=== PATIENT | female | born 1980 | race Asian ===

== ENCOUNTER 2017-03-03 09:37 | Emergency (ER) | payer OTHER ==
[2017-03-03 09:45] VITALS: BP 110/58
--- NOTE | 2017-03-03 11:14 | UC ---
Abdominal Pain Female HPI - HPI Summary HPI Summary: THIS MORNING HAD SEVERE RLQ PAIN, RESOLVED AFTER TAKING OTC MEDICATION FOR MENSTRUAL CRAMPS. NO FEVER. NO N/V. EXPECTING PERIOD TOMORROW. NO BACK PAIN. PATIENT AND ARE ATTEMPTING TO GET . - History of Current Complaint Chief Complaint: UCAbdominalPain Stated Complaint: ABDOMINAL PAIN Time Seen by Provider: 03/03/17 10:04 Hx Obtained From: Patient, Family/Taxicab Dispatcher Hx Last Menstrual Period: 02/03/17 Onset/Duration: Sudden Onset, Lasting Minutes, Resolved Severity Initially: Severe Severity Currently: None Pain Intensity: 2 Pain Scale Used: 0-10 Numeric Location: Discrete At: RLQ Character: Cramping, Sharp Aggravating Factor(s): Nothing Alleviating Factor(s): OTC Analgesics, Spontaneous Resolution Associated Signs and Symptoms: Negative: Diaphoresis, Fever, Cough, Chest Pain, Constipation, Blood in Stool, Urinary Symptoms, Decreased Appetite, Vaginal Bleeding, Vaginal Discharge, Nausea, Vomiting, Diarrhea Allergies/Adverse Reactions: Allergies Allergy/AdvReac Type Severity Reaction Status Date / Time No Known Allergies Allergy Verified 03/03/17 09:40 PMH/Surg Hx/FS Hx/Imm Hx Previously Healthy: Yes - Surgical History Surgical History: None - Family History Known Family History: Negative: Renal Disease - Social History Occupation: Employed Full-time Lives: With Family Alcohol Use: None Substance Use Type: None Smoking Status (MU): Never Smoked Tobacco Review of Systems Constitutional: Negative Skin: Negative Eyes: Negative ENT: Negative Respiratory: Negative Cardiovascular: Negative Gastrointestinal: Abdominal Pain Genitourinary: Frequency Motor: Negative Neurovascular: Negative Musculoskeletal: Negative Neurological: Negative Psychological: Negative All Other Systems Reviewed And Are Negative: Yes Physical Exam Triage Information Reviewed: Yes Appearance: Well-Appearing, No Pain Distress, Well-Nourished, Thin Vital Signs: Initial Vital Signs Temp 97.6 F 03/03/17 09:41 Pulse 65 03/03/17 09:41 Resp 16 03/03/17 09:41 BP 110/58 03/03/17 09:41 Pulse Ox 100 03/03/17 09:41 Vital Signs Reviewed: Yes Eye Exam: Normal ENT Exam: Normal ENT: Positive: Normal ENT inspection, Hearing grossly normal, TMs normal Dental Exam: Normal Neck exam: Normal Neck: Positive: Supple, Nontender, No Lymphadenopathy Respiratory Exam: Normal Respiratory: Positive: Chest non-tender, Lungs clear, Normal breath sounds, No respiratory distress, No accessory muscle use Cardiovascular Exam: Normal Cardiovascular: Positive: RRR, No Murmur, Pulses Normal Abdominal Exam: Normal Abdomen Description: Positive: Nontender, No Organomegaly, Soft. Negative: CVA Tenderness (R), CVA Tenderness (L) Musculoskeletal Exam: Normal Neurological Exam: Normal Psychological Exam: Normal Skin Exam: Normal Abd Pain Female Course/Dx - Course Course Of Treatment: PATEINT CURRENTLY ASYMPTOMATIC. UA SHOWED LEUKOCYTES, TREATED FOR UTI. PATIENT & AGREED TO SEEK CARE AT EMERGENCY DEPARTMENT IF SYMPTOMS RETURN OR IF NEW SYMPTOMS DEVELOP. - Differential Dx/Diagnosis Differential Diagnosis: Appendicitis, Constipation, Diverticulitis, Pneumonia, , Renal Colic, Urinary Tract Infection Provider Diagnoses: URINARY TRACT INFECTION Discharge - Discharge Plan Condition: Stable Disposition: HOME Prescriptions: Nitrofurantoin Macrocrystals* [Macrodantin*] 100 mg PO BID #10 cap Phenazopyridine TAB* [Pyridium 100 mg TAB*] 100 mg PO TID PRN #12 tab PRN Reason: Pain Patient Education Materials: Urinary Tract Infection in Women (ED), Acute Abdominal Pain (ED) Referrals: [facility] PHYSICIAN REFERRAL [Outside] No Primary Care Phys,NOPCP [Primary Care Provider] - Additional Instructions: PRIMARY CARE: There are four major types of clinical preventive care: immunizations, screening , behavioral counseling (sometimes referred to as lifestyle changes), and chemoprevention. All four apply throughout the life span. It is important to establish and to have access to a Primary Care Physician, not only for follow- up regrding acute and chronic problems, but also for preventative care. CURRENTLY YOU ARE ASYMPTOMATIC FOR ABDOMINAL PAIN. IF PAIN RETURNS, BECOMES SEVERE, OR IF NEW SYMPTOMS DEVELOP, PLEASE SEEK EVALUATION AT EMERGENCY DEPARTMENT.
--- NOTE | 2017-03-05 07:32 | UC ---
Progress - Progress Note Progress Note: notify pt no UTI stop antibiotic recheck if still symptomatic
== END 2017-03-03 10:51 | disposition home or self-care (01) ==
LOC: UCEAST 09:37
DX: N39.0 Urinary tract infection, site not specified (principal); Z32.02 Encounter for pregnancy test, result negative
CPT/HCPCS: 81003; 84702; 87086; 99212; G0463

== ENCOUNTER 2017-06-13 23:35 | Observation (INO) | payer OTHER ==
[2017-06-14] MEDS ORDERED: NS 0.9% 1000 ML* 1,000 ML IV ONE (02:28)
[2017-06-14] MEDS ORDERED: Ketorolac INJ* 30 MG/ML 1 ML VIAL IV PUSH ONE (02:28)
[2017-06-14] MEDS ORDERED: Metoclopramide IV* 5 MG/ML 2 ML VIAL IV SLOW PU ONE (02:29)
[2017-06-14 02:39] LABS: Hematocrit 37 % (35-47); Hemoglobin 12.3 g/dl (12.0-16.0); Mean Corpuscular HGB Conc 33 g/dl (31-36); Mean Corpuscular Hemoglobin 32 pg (27-31); Mean Corpuscular Volume 95 fL (80-97); Mean Platelet Volume 7 um3 (7.4-10.4); Red Blood Count 3.88 10^6/ul (4.0-5.4); Red Cell Distribution Width 13 % (10.5-15)
[2017-06-14 02:55] LABS: ALT 11 U/L (7-52); AST 14 U/L (13-39); Albumin 4.1 g/dL (3.2-5.2); Alkaline Phosphatase 38 U/L (34-104); Anion Gap 8 mmol/L (2-11); BUN/Creatinine Ratio 19.4 (8-20); Blood Urea Nitrogen 12 mg/dL (6-24); CO2 Carbon Dioxide 26 mmol/L (22-32); Calcium 9.5 mg/dL (8.6-10.3); Chloride 102 mmol/L (101-111); EGFR African American 141.7 (>60); EGFR Non-African American 110.2 (>60); Globulin 2.7 g/dL (2-4); Glucose 109 mg/dL (70-100); Lipase 18 U/L (11.0-82.0); Potassium 3.6 mmol/L (3.5-5.0); Sodium 136 mmol/L (133-145); Total Protein 6.8 g/dL (6.4-8.9)
[2017-06-14 03:12] LABS: Urine Bacteria 1+ (Absent); Urine Bilirubin Negative (Negative); Urine Glucose Negative (Negative); Urine Nitrite Negative (Negative); Urine Sperm Present (Absent)
[2017-06-14] MEDS ORDERED: Iohexol 300* (CONTRAST) 10 ML SDV IV ONE (03:19)
--- NOTE | 2017-06-14 08:06 | RAD ---
CLINICAL HISTORY: Abdominal pain COMPARISON: None TECHNIQUE: Multiple contiguous axial CT scans were obtained of the abdomen and pelvis after the administration of intravenous contrast. Coronal and sagittal multiplanar reformations are submitted for review. Oral contrast was administered. Delayed images were obtained through the abdomen and pelvis. FINDINGS: LUNG BASES: The lung bases are clear. LIVER: The liver is normal in shape, size, contour, and attenuation. BILE DUCTS: There is no intrahepatic or extrahepatic biliary dilatation. GALLBLADDER: The gallbladder is normal, without pericholecystic inflammatory change. PANCREAS: The pancreas is normal, without mass or ductal dilatation. SPLEEN: Normal in size and appearance. UPPER GI TRACT: Evaluation of the gastrointestinal tract is limited by incomplete gastric distention. The upper GI tract is unremarkable. SMALL BOWEL AND MESENTERY: There is mucosal thickening of the proximal small bowel COLON: The colon is normal in contour, course, caliber. There is no pericolonic inflammatory change. There is a tubular, vermiform, hollow viscus that is blind ending, and originates from the cecum, consistent with a normal appendix. There is no periappendiceal inflammatory change. ADRENALS: Normal bilaterally. KIDNEYS: The kidneys are normal in shape, size, contour, and axis. There is no hydronephrosis or nephrolithiasis. BLADDER: The bladder is smooth in contour. PELVIC ORGANS: There is a peripherally enhancing loculated fluid collection within the pelvic cul-de-sac measuring approximately 6.1 x 5.8 x 6.4 cm in size. There is a 1.3 cm right ovarian cyst. AORTA: The aorta is normal. IVC: Unremarkable LYMPH NODES: There is no lymphadenopathy by size criteria. ABDOMINAL WALL: There is no evidence for abdominal wall hernia. BONES AND SOFT TISSUES: Unremarkable OTHER: None IMPRESSION: 1. THERE IS A LOCULATED FLUID COLLECTION WITHIN THE PELVIC CUL-DE-SAC MEASURING APPROXIMATE 6.1 CM IN SIZE. THE APPEARANCE IS CONCERNING FOR ABSCESS IN THE CORRECT CLINICAL SETTING, THOUGH COMPLEX OVARIAN CYST IS ALSO WITHIN THE DIFFERENTIAL. 2. THERE IS MILD MUCOSAL THICKENING OF THE PROXIMAL SMALL BOWEL MAY BE AN ARTIFACT OF PERISTALSIS OR MAY REFLECT INFLAMMATORY CHANGE IN THE SETTING OF ENTERITIS. THERE IS NO OBSTRUCTION.
--- NOTE | 2017-06-14 09:14 | RAD ---
HISTORY: Ovarian cyst COMPARISONS: CT dated June 14, 2017 TECHNIQUE: Multiple transverse and longitudinal ultrasound images were obtained of the pelvis using grayscale, color Doppler, and spectral Doppler imaging using the endovaginal transducer. FINDINGS: UTERUS: The uterus measures 9.5 x 5.1 x 5.2 cm. The uterus is normal in shape, size, contour, and echotexture. ENDOMETRIUM: The endometrium is thickened.. The endometrium measures 1.7 cm in thickness. CUL-DE-SAC: There is loculated fluid collection within the cul-de-sac corresponding to the finding noted on CT. This appears to be related to the left ovary consistent with a large complex left ovarian cyst measuring 4.9 x 2.4 x 5.8 cm in size. There is no hypervascularity. RIGHT OVARY: The right ovary measures 3.1 x 2.3 x 2.8 cm. There is a follicular cyst measuring up to 2.2 cm. Normal arterial and venous waveforms are identifiable within the ovary on spectral Doppler imaging. LEFT OVARY: The left ovary measures 5.3 x 3.3 x 6.3 cm. As noted above, there is a complex left ovarian cyst within the cul-de-sac measuring up to 5.8 cm. Normal arterial and venous waveforms are identifiable within the ovary on spectral Doppler imaging. BLADDER: The bladder is not well visualized. OTHER: None IMPRESSION: 1. THE COMPLEX FLUID COLLECTION WITHIN THE CUL-DE-SAC NOTED ON CT APPEARS TO BE RELATED TO THE LEFT OVARY CONSISTENT WITH A LARGE, COMPLEX LEFT OVARIAN CYST MEASURING UP TO 5.8 CM. THERE IS NO HYPERVASCULARITY. 2. THICKENED ENDOMETRIUM, MEASURING UP TO 1.7 CM. 3. NO SONOGRAPHIC FEATURES OF TORSION. PLEASE NOTE THAT PARTIAL OR INTERMITTENT TORSION MAY BE SONOGRAPHICALLY NORMAL.
[2017-06-14] MEDS ORDERED: Ondansetron INJ* 2 MG/ML VIAL IV ONE (10:16)
[2017-06-14] MEDS ORDERED: Morphine INJ* 4 MG/ML 1 ML CARPUJECT IV ONE (10:16)
[2017-06-14] MEDS: NS 0.9% 1000 ML* 2,000 ML IV ONE ×2 (10:32→10:33)
[2017-06-14 11:47] LABS: Hematocrit 33 % (35-47); Hemoglobin 10.8 g/dl (12.0-16.0); Mean Corpuscular HGB Conc 33 g/dl (31-36); Mean Corpuscular Hemoglobin 32 pg (27-31); Mean Corpuscular Volume 96 fL (80-97); Mean Platelet Volume 7 um3 (7.4-10.4); Red Cell Distribution Width 13 % (10.5-15); White Blood Count 18.5 10^3/ul (3.5-10.8)
[2017-06-14] MEDS ORDERED: oxyCODONE/Acetamin 5/325 MG* TAB PO PRN (13:25)
[2017-06-14] MEDS: Ketorolac INJ* 30 MG/ML 1 ML VIAL IV SCH ×2 (13:49→22:25)
[2017-06-14] MEDS ORDERED: Piperacillin/Tazobac ADVAN(*) 3.375 GM in NS 0.9% 100 ML* 100 ML IVPB ONE (14:24)
[2017-06-14] MEDS ORDERED: Zosyn per Pharmacy* NOTE FOLLOW UP SCH (15:00)
--- NOTE | 2017-06-14 17:23 | HP ---
ADMISSION FOR OBSERVATION HISTORY AND PHYSICAL: DATE OF ADMISSION: 06/14/17 HISTORY OF PRESENT ILLNESS: Mrs. Onofre is a 36-year-old 0, para 0 with her last menstrual period two weeks ago. She presented to the emergency room on 06/13/17 just before midnight after an acute onset of lower abdominal pain right after having intercourse. She described the pain as a stabbing, poking lower abdominal sensation, greater on the right side than on the left, which became persistent and aggravating. The pain is localized to the lower abdomen. It was accompanied by sudden chills only once and nausea. In the emergency room, after having a pelvic ultrasound and CT scan of the abdomen and blood work, she was diagnosed with a left complex ovarian cyst, a complex fluid collection in the lower pelvis cul-de-sac. She was also noted to have an elevated white blood cell count. She was also tachycardic and had a low blood pressure. She was treated with pain medications and this a.m., I was consulted by the emergency room physician for pain management. PAST MEDICAL HISTORY: Endometriosis, hypercholesterolemia. PAST SURGICAL HISTORY: On 05/06/17, she underwent a laparoscopic left ovarian cystectomy for an endometrioma. MEDICATIONS: None. ALLERGIES: No known drug allergies. SOCIAL HISTORY: She has a master's degree in education. She is . She denies any cigarette, alcohol or drug use. She is currently employed. GYNECOLOGIC HISTORY: As noted in the history of present illness. She denies any history of sexually transmitted diseases. REVIEW OF SYSTEMS: The patient denied any urinary signs or symptoms. Other than nausea, she denied vomiting, diarrhea, constipation, or difficulty with bowel movements. She also denied abnormal vaginal bleeding or vaginal discharge. PHYSICAL EXAMINATION VITAL SIGNS: The patient is 63 inches tall. She weighs 124 pounds. Blood pressure at the time of my examination was 90/52 with a pulse of 107, respiratory rate of 16 with a pulse ox of 97% on room air. LUNGS: Clear to auscultation bilaterally. HEART: Showed irregular rhythm, but tachycardic. She had no CVA tenderness bilaterally. ABDOMEN: Soft, nondistended with hypoactive bowel sounds. No rebound. She did ; however, have positive lower abdominal tenderness on the right side greater than on the left. PELVIC: Exam was deferred. LABORATORY DATA: Her laboratories today, she had a complete blood cell count with a white blood cell count of 18.5. This is elevated from her initial white blood cell count. She also had hemoglobin and hematocrit of 10.8/33, which is a drop in her hemoglobin and hematocrit, which was normal at the time of admission. Platelet count of 258,000, which is within normal limits. She also had an elevated C- reactive protein at 53.14, which was normal on admission. IMAGING: Pelvic ultrasound revealed a complex fluid collection within the cul- de- sac along with a complex 5.8 cm left ovarian cyst. No signs of torsion on the ultrasound. She also had a normal uterus and a normal endometrial thickness given her being mid cycle. CT scan of the abdomen prior to the ultrasound also revealed a left ovarian cyst and cul-de-sac fluid. Please refer to the CT scan. IMPRESSION AND PLAN: This is a 36-year-old patient with abdominal pain of acute onset post sexual intercourse with mid cycle menses. She has a left complex ovarian cyst and cul-de-sac fluid with an elevated white blood cell count, elevated C-reactive protein and a drop in hemoglobin and hematocrit. She has been afebrile since admission. Given the patient's signs and symptoms, my differential is consistent with the followin. Ruptured hemorrhagic physiologic cyst. 2. The patient is afebrile; however, she does have a localized cul-de-sac collection on ultrasound and CT scan with an elevated white blood cell count and C-reactive protein. I cannot rule out the possibility that this could be an infectious process, possibly from her surgery on 05/06/17; however, this seems unlikely. I will admit the patient for observation for pain control. I am also starting Zosyn antibiotics IV and IV hydration. The patient is to have a repeat complete blood cell count, comprehensive metabolic panel, and a C- reactive protein in the a.m. of 06/15/07 if she remains stable. [id number]/[facility] #: [id number] [facility] CENTERBraeden
[2017-06-14] MEDS: ZOSYN 3.375 GM Q6H - Intermittant 30 min Infusion IVPB SCH ×2 (22:22)
--- NOTE | 2017-06-14 23:39 | ED ---
Cathy Tellez Rebecca, scribed for Kate Medeiros MD on 06/14/17 at 0225 . Abdominal Pain/Female - HPI Summary HPI Summary: Pt is a 36 y/o F who presents to ED c/o RLQ abdominal pain. Sx began last night at approximately 2000 and is currently mild, ranked 3/10. Sx aggravated and alleviated by nothing. Additionally c/o nausea. Denies vomiting and fever. LNMP beginning of June. Is not on oral contraceptives. - History of Current Complaint Chief Complaint: EDAbdPain Stated Complaint: ABD PAIN Time Seen by Provider: 06/14/17 02:06 Hx Obtained From: Patient Hx Last Menstrual Period: 02/03/17 Onset/Duration: Lasting Days, Still Present Severity Currently: Mild Pain Intensity: 3 Pain Scale Used: 0-10 Numeric Location: Discrete At: RLQ Radiates: No Aggravating Factor(s): Nothing Alleviating Factor(s): Nothing Associated Signs and Symptoms: Positive: Nausea. Negative: Fever, Vomiting Allergies/Adverse Reactions: Allergies Allergy/AdvReac Type Severity Reaction Status Date / Time No Known Allergies Allergy Verified 06/13/17 23:46 PMH/Surg Hx/FS Hx/Imm Hx Sensory History: Reports: Hx Contacts or Glasses - glasses Denies: Hx Hearing Aid Opthamlomology History: Reports: Hx Contacts or Glasses - glasses EENT History: Denies: Hx Deafness - Cancer History Hx Chemotherapy: No Infectious Disease History: No Infectious Disease History: Denies: Hx Clostridium Difficile, Hx Hepatitis, Hx Human Immunodeficiency Virus (HIV), Hx of Known/Suspected MRSA, Hx Shingles, Hx Tuberculosis, Hx Known/ Suspected VRE, Hx Known/Suspected VRSA, History Other Infectious Disease, Traveled Outside the [place] in Last 30 Days - Family History Known Family History: Negative: Renal Disease - Social History Alcohol Use: None Substance Use Type: Reports: None Smoking Status (MU): Never Smoked Tobacco Review of Systems Negative: Fever Positive: Abdominal Pain, Nausea. Negative: Vomiting All Other Systems Reviewed And Are Negative: Yes Physical Exam - Summary Physical Exam Summary: VITAL SIGNS: Reviewed. GENERAL: ~Patient is a well-developed and nourished female who is lying comfortable in the stretcher. Patient is not in any acute respiratory distress. HEAD AND FACE: No signs of trauma. No ecchymosis, hematomas or skull depressions. No sinus tenderness. EYES: PERRLA, EOMI x 2, No injected conjunctiva, no nystagmus. EARS: Hearing grossly intact. Ear canals and tympanic membranes are within normal limits. MOUTH: Oropharynx within normal limits. NECK: Supple, trachea is midline, no adenopathy, no JVD, no carotid bruit, no c- spine tenderness, neck with full ROM. CHEST: Symmetric, no tenderness at palpation LUNGS: Clear to auscultation bilaterally. No wheezing or crackles. CVS: Regular rate and rhythm, S1 and S2 present, no murmurs or gallops appreciated. ABDOMEN: Soft with RLQ tenderness. No signs of distention. No rebound no guarding, and no masses palpated. Bowel sounds are normal. EXTREMITIES: FROM in all major joints, no edema, no cyanosis or clubbing. NEURO: Alert and oriented x 3. No acute neurological deficits. Speech is normal and follows commands. SKIN: Dry and warm Triage Information Reviewed: Yes Vital Signs On Initial Exam: Initial Vitals Temp Pulse Resp BP Pulse Ox 97.9 F 87 16 113/55 99 06/13/17 23:42 06/13/17 23:42 06/13/17 23:42 06/13/17 23:42 06/13/17 23:42 Vital Signs Reviewed: Yes Diagnostics - Vital Signs Vital Signs Temp Pulse Resp BP Pulse Ox 06/13/17 23:42 97.9 F 87 16 113/55 99 - Laboratory Result Diagrams: 06/14/17 02:26 06/14/17 02:26 Lab Statement: Any lab studies that have been ordered have been reviewed, and results considered in the medical decision making process. - CT CT Abd/Pel CT Interpretation Completed By: Radiologist - 5.8 x x3.8 x 3.7 cm cystic structure in cul-de-sac, questio left ovarian cyst or tubo-ovarian complex. Advise further evaluation with ultrasound. 2.2 cm dominant follicle right ovary. Possible arcuate uterus. Trace free fluid right posterior cul-de-sac and paracolic spaces. No bowel obstrution, colitis, or free air. Normal appendix. Unremarkable pancreas, kidneys, and gallbladder. Dr. Medeiros reviewed radiology report. Re-Evaluation - Re-Evaluation First Eval Re-Evaluation Time: 06:42 Comment: Discussed CT results, the pt refuses any more pain medication. Agrees to wait for US. Abdominal Pain Fem Course/Dx - Course Course Of Treatment: Pt is a 36 y/o F who presents to ED c/o RLQ abdominal pain since last night at approximately 1999, currently mild, ranked 3/10. Additionally c/o nausea. Denies vomiting and fever. LNMP beginning of June. Is not on oral contraceptives. CT Abd/Pel results above. Pt will be signed out to Dr. Zeng, pending disposition, awaiting US. - Diagnoses Provider Diagnoses: Abdominal pain, Ovarian cyst Discharge - Discharge Plan Condition: Stable Disposition: OTHER Discharge Disposition Comment: Pt will be signed out, pending disposition, awaiting US. Referrals: No Primary Care Phys,NOPCP [Primary Care Provider] - The documentation as recorded by the Cathy guillermo Rebecca accurately reflects the service I personally performed and the decisions made by me, Kate Medeiros MD.
[2017-06-15] MEDS: ZOSYN 3.375 GM Q6H - Intermittant 30 min Infusion IVPB SCH ×8 (04:16→21:48)
[2017-06-15 05:03] LABS: Hematocrit 29 % (35-47); Hemoglobin 10.2 g/dl (12.0-16.0); Mean Corpuscular HGB Conc 35 g/dl (31-36); Mean Corpuscular Hemoglobin 33 pg (27-31); Mean Corpuscular Volume 96 fL (80-97); Mean Platelet Volume 7 um3 (7.4-10.4); Red Blood Count 3.08 10^6/ul (4.0-5.4); Red Cell Distribution Width 13 % (10.5-15); White Blood Count 12.4 10^3/ul (3.5-10.8)
[2017-06-15 05:19] LABS: Albumin 3.1 g/dL (3.2-5.2); BUN/Creatinine Ratio 10.9 (8-20); C Reactive Protein 149.35 mg/L (< 5.00); Calcium 7.9 mg/dL (8.6-10.3); EGFR African American 162.7 (>60); EGFR Non-African American 126.5 (>60); Globulin 2.2 g/dL (2-4); Potassium 3.1 mmol/L (3.5-5.0); Total Bilirubin 0.8 mg/dL (0.2-1.0); Total Protein 5.3 g/dL (6.4-8.9)
--- NOTE | 2017-06-15 17:45 | ED ---
Jc Tellez Benjamin, anniaibed for Abhi Zeng MD on 06/14/17 at 0750 . Progress - Progress Note Progress Note: Signout pt from Dr. Medeiros. Pending US report. Pt is a 36yo female c/o RLQ since last night. Pt denies fever, diarrhea, constipation, or any urinary symptoms.. Pt states that walking worsens her pain. Pt reports that she is still in some pain. Pt was dxed with chocolate cyst in left ovary and had a Laparoscopic procedure done on 05/06/17. Pt has a follow up appointment scheduled with Dr. Brian on 06/21/17. - Results/Orders Results/Orders: CT ABDOMEN/ PELVIS IMPRESSION: 1. THERE IS A LOCULATED FLUID COLLECTION WITHIN THE PELVIC CUL-DE-SAC MEASURING APPROXIMATE 6.1 CM IN SIZE. THE APPEARANCE IS CONCERNING FOR ABSCESS IN THE CORRECT CLINICAL SETTING, THOUGH COMPLEX OVARIAN CYST IS ALSO WITHIN THE DIFFERENTIAL. 2. THERE IS MILD MUCOSAL THICKENING OF THE PROXIMAL SMALL BOWEL MAY BE AN ARTIFACT OF PERISTALSIS OR MAY REFLECT INFLAMMATORY CHANGE IN THE SETTING OF ENTERITIS. THERE IS NO OBSTRUCTION. Transvaginal US IMPRESSION: 1. THE COMPLEX FLUID COLLECTION WITHIN THE CUL-DE-SAC NOTED ON CT APPEARS TO BE RELATED TO THE LEFT OVARY CONSISTENT WITH A LARGE, COMPLEX LEFT OVARIAN CYST MEASURING UP TO 5.8 CM. THERE IS NO HYPERVASCULARITY. 2. THICKENED ENDOMETRIUM, MEASURING UP TO 1.7 CM. 3. NO SONOGRAPHIC FEATURES OF TORSION. PLEASE NOTE THAT PARTIAL OR INTERMITTENT TORSION MAY BE SONOGRAPHICALLY NORMAL. Re-Evaluation - Re-Evaluation First Eval Re-Evaluation Time: 07:36 Change: Improved - Reviewed lab results with the pt. Pt states pain has improved compared to initial onset, but still some pain present. Second Eval Re-Evaluation Time: 09:42 Change: Improved - Reviewed ultrasound and CT results with the pt. Pt reports pain is now 4/10. Pain was initially 10/10 last night. Pt has RLQ and suprapubic tenderness. positive bowel sounds. Course/Dx - Course Course Of Treatment: Spoke to Dr. Valdez (CHAR FILTER OPERATOR) at [address] VALDEZ SAW PATIENT IN THE EMERGENCY DEPARTMENT AND ADMITTED THE PATIENT. - Diagnoses Provider Diagnoses: Abdominal pain, Ovarian cyst The documentation as recorded by the Jc guillermo Benjamin accurately reflects the service I personally performed and the decisions made by me, Abhi Zeng MD.
[2017-06-16] MEDS: ZOSYN 3.375 GM Q6H - Intermittant 30 min Infusion IVPB SCH ×6 (04:17→16:32)
[2017-06-16 06:31] LABS: Hematocrit 31 % (35-47); Hemoglobin 10.3 g/dl (12.0-16.0); Mean Corpuscular HGB Conc 34 g/dl (31-36); Mean Corpuscular Hemoglobin 32 pg (27-31); Mean Corpuscular Volume 96 fL (80-97); Mean Platelet Volume 8 um3 (7.4-10.4); Red Blood Count 3.22 10^6/ul (4.0-5.4); Red Cell Distribution Width 13 % (10.5-15); White Blood Count 8.6 10^3/ul (3.5-10.8)
[2017-06-16 16:31] VITALS: BP 109/59
--- NOTE | 2017-06-22 00:53 | DS ---
CC: Primary Care Physician?* DISCHARGE SUMMARY: DATE OF ADMISSION: 06/14/17 DATE OF DISCHARGE: 06/16/17. HISTORY: This is a 36-year-old, 0, para 0; last menstrual period approximately 2 weeks ago, in the emergency room on 06/13/17 after acute onset of right abdominal pain after having intercourse. She described the pain as stabbing and poking her lower abdomen, greater on the right than on the left. It became persistent and aggravating. She was initially tachycardic and had a low blood pressure, and had an elevated white count. She was admitted, her admission blood pressure was 90/52, pulse was 107. The abdomen was soft with hypoactive bowel sounds, no rebound and lower abdominal tenderness, greater on the right than on the left. Laboratories include a white count of 18.5, hemoglobin of 10.8, hematocrit of 33. CT showed a left ovarian cyst with cul-de -sac fluid. She was started on Zosyn and admitted to the hospital. She improved quickly and was afebrile throughout. Her white count improved to normal and she was discharged on hospital day #2 without any further complications. [id number]/[facility] #: [id number] MTDD
== END 2017-06-16 16:20 | disposition home or self-care (01) ==
LOC: ED 23:35 → SSU 06-14 11:41
PROVIDERS: ADMIT Obstetrics & Gynecology; ATTEND Obstetrics & Gynecology
DX: N83.292 Other ovarian cyst, left side (principal); R10.31 Right lower quadrant pain; R10.32 Left lower quadrant pain; N94.89 Other specified conditions associated with female genital organs and menstrual cycle; R00.0 Tachycardia, unspecified; R03.1 Nonspecific low blood-pressure reading; D72.829 Elevated white blood cell count, unspecified
CPT/HCPCS: 36415; 74177; 76830; 80053; 81003; 81015; 83690; 84702; 85025; 86140; 86141; 87086; 99283; G0378; J1885; J2270; J2405; J2543; J2765; Q9967

== ENCOUNTER 2018-08-21 11:19 | Inpatient (IN) | payer OTHER ==
[2018-08-21] MEDS ORDERED: Buffered Lidocaine 1% SYRIN* 1 ML/SYRINGE INTRADERM ONE (12:21)
[2018-08-21] MEDS ORDERED: Lactated Ringers 1000 ML Bag* 1,000 ML IV ONE ×2 (12:21→19:47)
--- NOTE | 2018-08-21 12:35 | HP ---
General Information - Reason for Visit Pt reports ctx starting night and continuing with variable frequency ever since. She was seen as an outpt, treated with therapeutic rest and discharged home. She had her visit in the office today, and was jerica and uncomfortable. 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 She was sent to L&D from the office. - General Information Maternal Age: 38 Grav: 1 Para: 0 SAB: 0 IEA: 0 Estimated Due Date: 08/23/18 Determined By: LMP Maternal Blood Type and Rh: B Positive - Results this Serology/RPR Result: Non-Reactive Rubella Result: Immune HBsAg Result: Negative HIV Result: Negative GBS Culture Result: Negative Past Medical History Delivery History: See Records - Primigravida Pertinent Past Medical History: See Records - Ovarian cyst Pertinent Past Surgical History: See Records - ovarian cystectomy with fulguration of endometriosis Pertinent Family History: Non-Contributory - Antepartal Records Antepartal Records: Reviewed, Complicated by: - advanced maternal age , ovarian cyst Review of Systems Constitutional: Uncomfortable - when having ctx CV Complaint: No Respiratory: Shortness of Breath: No Gastrointestinal: No Nausea/Vomiting, Normal Bowel Movement Genitourinary: No Bleeding, No Leaking Fluid Musculoskeletal: No Epigastric Pain, Contractions Neurological: No Headache, No Visual Changes Movement: Normal Exam Allergies/Adverse Reactions: Allergies No Known Allergies Allergy (Verified 08/20/18 04:19) T-98.6, P-83, R-19, BP 111/65, O2-100% - Measurements Height: 5 ft 2.2 in Weight: 79.832 kg Weight in lbs: 176.160047 Body Mass Index (BMI): 31.9 Pre- Weight: 54.431 kg Weight Gained This : 56 lbs and 0 ozs - Exam Breast: Breast Exam Deferred CVA: No CVA Tenderness Extremities: No Edema Heart: Normal Rhythm/Heart Sounds HEENT: No Significant Findings Lungs: Clear Bilaterally Rectal: Rectal Exam Deferred Reflexes: DTR 2+ Thyroid: No Thyromegaly - Abdominal Exam Abdomen Exam: Non-Tender, Fundal Height Consistent with Dates - Ultrasound/Biophysical Profile Ultrasound Status: Not Done Targeted Exam Findings See L&D Outpatient Visit Provider Note for Findings: N/A Estimated Weight: 7# Cervical Exam: 2cm - 2-3 cm Effacement: 80% Station: -1 Presenting Part: Vertex Membrane Status: Intact Bleeding/Discharge: None EFM Findings - External Monitor Findings Baseline Heart Rate: 135 External Monitor Findings: Accelerations Present, No Pattern of Variable or Late Decelerations, Variability Moderate, Baseline Stable Contractions: Irregular, Mild, Moderate, 45-90 Seconds - ctx every 2-3 minutes but many are mild and pt can't feel. Others are stronger and she feels uncomfortable. Contraction Frequency: 2-3 minutes Assessment/Plan - Assessment 38 year old at 39 5/7 weeks gestation in early labor, FHR with no evidence of acidemia, GBS negative, membranes intact. - Plan Plan: Admit - Anticipate Vaginal Delivery Plan Comment: Discussed options with pt and . They would like to be admitted to L&D with the possibility of augmenting labor if pt continues to be in early/ prodromal labor. Discussed process for labor augmentation. Pt will wait a little while to see if ctx continue to miner pick, then may opt for augmentation if active labor does not ensue. - Date/Time of Admission Date of Admission: 08/21/18 Time of Admission: 12:00
[2018-08-21] MEDS ORDERED: Oxytocin in LR* 20 UNITS/1,000 ML BAG IVPB ONE (15:17)
--- NOTE | 2018-08-21 15:32 | PN ---
Progress Note - Progress Note Date of Service: 08/21/18 SOAP: Subjective: Pt reports ctx still feel very mild, except for a stronger one about every 10 minutes. at bedside, supportive. Objective: FHR:baseline 140, + accels, no decels, moderate variability UCs: 3-5 minutes on monitor, pt only feels about every 10 minutes Temp 98.8 Membranes intact Cervical exam deferred Assessment: Pt still appears to be in early/ prodromal labor. FHR with no evidence of acidemia. Membranes intact. Plan: Pt and would like labor augmentation. Discussed risks and benefits. As pt is not postdates and membranes are intact, the primary reason for augmentation at this time is maternal fatigue and prolonged prodromal labor. Will initiate Pitocin at 2 mu/min. Pt would like epidural at some point, discussed epidural procedure with pt. She can get at any time, although I recommended waiting until labor is more active and ideally cervix is at least 4 or 5 cm.
[2018-08-21] MEDS ORDERED: Oxytocin in LR* 20 UNITS/1,000 ML BAG IVPB SCH (16:00)
[2018-08-21 16:02] LABS: ABS Basophils 0 10^3/ul (0-0.2); ABS Eosinophils 0 10^3/ul (0-0.6); ABS Monocytes 0.6 10^3/ul (0-0.8); ABS Neutrophils 7.9 10^3/ul (1.5-7.7); ABS Nucleated RBC 0 10^3/ul; Eosinophil % 0.3 %; Hematocrit 37 % (35-47); Hemoglobin 12.7 g/dl (12.0-16.0); Lymphocyte % 10.2 %; Mean Corpuscular HGB Conc 34 g/dl (31-36); Mean Corpuscular Hemoglobin 34 pg (27-31); Mean Corpuscular Volume 99 fL (80-97); Mean Platelet Volume 8.6 fL (7.4-10.4); Nucleated Red Blood Cells % 0.1; Platelet Count 264 10^3/ul (150-450); Red Blood Count 3.74 10^6/ul (4.00-5.40); Red Cell Distribution Width 14 % (10.5-15); White Blood Count 9.5 10^3/ul (3.5-10.8)
[2018-08-21] MEDS ORDERED: Lidocaine 1%* 5 ML VIAL ONE (16:02)
--- NOTE | 2018-08-21 18:04 | PN ---
Progress Note - Progress Note Date of Service: 08/21/18 SOAP: Subjective: Pt states she is aware of all ctx now. Breathing through them. States she does not need pain medication at this time. Objective: FHR: Baseline 135, + accels, moderate variability, no decels UCs: 2-3 minutes BP 121/67, Temp 98.5 Assessment: Pt appears to be getting into more active labor pattern. No evidence of acidemia. Membranes intact. Plan: Will plan to recheck cervix either when pt requests pain medication or in 2-3 hours. Continue Pitocin augmentation. Anticipate .
[2018-08-21] MEDS ORDERED: OBEPIDURAL* 250 ML EPIDURAL ONE (19:02)
[2018-08-21] MEDS: Lactated Ringers 1000 ML Bag* 1,000 ML IV SCH ×3 (19:25→21:55)
--- NOTE | 2018-08-21 19:27 | PN ---
Progress Note - Progress Note Date of Service: 08/21/18 SOAP: Subjective: Pt much more uncomfortable at this time, requesting epidural. Anesthesia notified, primary anesthesiologist and second call in emergency cases, however, second day anesthesiologist staying late to place epidural. Pt crying with ctx. Objective: FHR baseline 130, moderate variability, + accels, no decels UCs Q 2-3 minutes Pitocin off pending epidural Membranes intact. Assessment: Pt appears to be in active labor. Cervical exam deferred as pt would want epidural regardless of exam and finds cervical exam difficult to tolerate. No evidence of acidemia. Plan: Epidural for pain relief. Will perform cervical exam after pt comfortable with epidural. Pitocin off to facilitate pt comfort during epidural procedure, will restart as needed if ctx decrease in frequency or if pt not demonstrating adequate cervical change.
[2018-08-21] MEDS ORDERED: Phenylephrine IV* 40 MCG/ML 10 ML SYRINGE IV PUSH PRN (19:47)
[2018-08-21] MEDS ORDERED: Sodium Citrate/Citric Acid* 15 ML UDC PO PRN (19:47)
[2018-08-21] MEDS ORDERED: OBEPIDURAL* 250 ML EPIDURAL SCH (20:00)
[2018-08-21] MEDS ORDERED: Lactated Ringers 1000 ML Bag* 1,000 ML IV SCH (20:00)
--- NOTE | 2018-08-21 21:29 | PN ---
Progress Note - Progress Note Date of Service: 08/21/18 SOAP: Subjective: Pt comfortable after epidural, trying to take a nap. Pt declines cervical exam at this time. Objective: FHR baseline 125, moderate variability, + accels, no decels UCs Q 2-3 minutes Pitocin at 4 mu/min BP 128/67 Assessment: 38 year old at 39 5/7 weeks gestation in active labor, being augmented with Pitocin for prolonged prodromal labor, membranes intact, comfortable with epidural, no evidence of acidemia. Plan: Continue Pitocin augmentation. Recheck cervix in 2 hours or when pt requests.
[2018-08-21] MEDS ORDERED: Bupivacaine 0.25% SDV PF* 10 ML VIAL INJ ONE (22:17)
--- NOTE | 2018-08-21 23:31 | PN ---
Progress Note - Progress Note Date of Service: 08/21/18 SOAP: Subjective: Pt's epidural had become one-sided. Dr. Arciniega adjusted position of tubing and pt now reports that she is much more comfortable, has relief on both sides now. Pt reported SROM at 2255. Objective: FHR: baseline 130, + accels, early decels, moderate variability Amniotic fluid clear UCs: 2-4 minutes Pitocin at 4 mu/min T-98.0 Cervix: 4-5 cm/ 100%/ -1/ vtx Assessment: Pt making progress in labor, comfortable with epidural, no evidence of acidemia. Plan: Continue Pitocin augmentation. Anticipate .
--- NOTE | 2018-08-22 00:09 | PN ---
Progress Note - Progress Note Date of Service: 08/22/18 Note: Called by RN to bedside as pt had several late decelerations, the longest lasting 2 minutes and going into the 70's at its manuel. Variability remained moderate. Pt's position changed, O2 applied, and Pitocin discontinued. Cervical exam revealed pt fully dilated, +1 station, vtx presentation. Soon after decelerations became much shallower and at this time have nearly ceased altogether. Likely decelerations due to abrupt change in cervical dilation. Pt experiencing some increased pressure with ctx, coping well. Will begin trial of pushing shortly.
[2018-08-22] MEDS ORDERED: Acetaminophen TAB* 325 MG PO PRN (03:17)
[2018-08-22] MEDS ORDERED: Dibucaine 1% 28.35 GM TUBE PR PRN (03:17)
[2018-08-22] MEDS ORDERED: Witch Hazel PAD* JAR TOPICAL PRN (03:17)
[2018-08-22] MEDS ORDERED: Glycerin ADULT SUPP PR PRN (03:17)
[2018-08-22] MEDS ORDERED: Lactated Ringers 1000 ML Bag* 1,000 ML IV SCH (04:00)
[2018-08-22] MEDS ORDERED: Oxytocin in LR* 20 UNITS/1,000 ML BAG IVPB SCH (04:00)
[2018-08-22] MEDS ORDERED: Lidocaine 1% INJ* 10 MG/ML 30 ML SDV ONE (05:45)
--- NOTE | 2018-08-22 07:05 | PROCNOTE ---
[facility] OB: Delivery Note - Delivery A Date of : 08/22/18 Time of : 02:14 [place] Sex: Female Weight at : 3.015 kg Score 1 Minute: 9 Score 5 Minutes: 9 Gestational Age in Weeks and Days at Delivery: 39 Weeks and 6 Days Delivery Method: Spontaneous Vaginal Labor: Spontaneous - Augmented Did Patient attempt ?: N/A, No Previous Amniotic Fluid: Clear Estimated Blood Loss: 400 Anesthesia/Analgesia: CEI for Labor Delivered By: Tammie Pineda - Nursery Level of Nursery: Regular/Bedside - Perineum Perineal Injury: 2nd Degree Perineal Repair: By Delivering Practioner - Events Delivery Events of Note: Pitocin During Labor, Supplemental O2 to Mother - Additional Delivery Notes Additional Delivery Notes: Pt admitted to L&D in early labor after experiencing several days of prodromal labor. Pt elected to augment labor, and as cervix was favorable, augmentation initiated with Pitocin. Pt made steady progress and eventually requested and received an epidural. Initially had one sided pain relief, but after adjustment by anesthesiologist pt was very comfortable. Pt progressed rapidly from 5 cm to full dilation at which time baby showed some variable decelerations which resolved with position changes. Pt coached on pushing and pushed effectively with steady descent, eventually bringing the baby to . Pt coached through slow, controlled delivery of head. Shoulders followed easily with next push. to maternal abdomen with spontaneous cry and HR> 100, dried and stimulated. After cord pulsation ceased (about 5 minutes) cord clamped x2 and cut by 's father. Placenta soon followed with gentle traction on cord, rob side, complete. Pitocin in LR initiated at 250 cc/ hr. Fundus remained firm but clots expressed from lower uterine segment after which bleeding was minimal. Examination of the perineum revealed second degree laceration, repaired using 3-0 Velosorb suture resulting in good tissue approximation and hemostasis. Pt and infant stable at this time, anticipate normal course.
[2018-08-22] MEDS: Ibuprofen TAB* 600 MG PO PRN ×2 (08:18→14:28)
[2018-08-22] MEDS: Docusate CAP* 100 MG PO SCH ×3 (08:18→21:53)
[2018-08-23] MEDS: Ibuprofen TAB* 600 MG PO PRN ×3 (05:14→18:14)
[2018-08-23 08:03] LABS: ABS Basophils 0 10^3/ul (0-0.2); ABS Eosinophils 0.1 10^3/ul (0-0.6); ABS Lymphocytes 1.3 10^3/ul (1.0-4.8); ABS Monocytes 0.6 10^3/ul (0-0.8); ABS Neutrophils 8.3 10^3/ul (1.5-7.7); ABS Nucleated RBC 0 10^3/ul; Eosinophil % 1.1 %; Hematocrit 33 % (35-47); Hemoglobin 11.1 g/dl (12.0-16.0); Lymphocyte % 12.6 %; Mean Corpuscular HGB Conc 34 g/dl (31-36); Mean Corpuscular Hemoglobin 34 pg (27-31); Mean Corpuscular Volume 100 fL (80-97); Mean Platelet Volume 8.1 fL (7.4-10.4); Nucleated Red Blood Cells % 0; Platelet Count 218 10^3/ul (150-450); Red Blood Count 3.27 10^6/ul (4.00-5.40); Red Cell Distribution Width 14 % (10.5-15); White Blood Count 10.4 10^3/ul (3.5-10.8)
[2018-08-23] MEDS ORDERED: Ferrous Gluconate TAB* 324 MG TAB PO SCH (09:00)
[2018-08-23] MEDS: Docusate CAP* 100 MG PO SCH ×3 (09:08→20:32)
[2018-08-23 20:27] VITALS: BP 112/50
[2018-08-24] MEDS: Ibuprofen TAB* 600 MG PO PRN ×2 (01:35→08:19)
[2018-08-24] MEDS: Docusate CAP* 100 MG PO SCH (08:19)
== END 2018-08-24 14:57 | disposition home or self-care (01) | DRG 807 ==
LOC: MCHOBOUT 11:19 → MCHOB 12:19
PROVIDERS: ADMIT Midwife; ATTEND Midwife
PROC: 4A1HXCZ Monitoring of Products of Conception, Cardiac Rate, External Approach (ICD-10-PCS; principal; 2018-08-21)
PROC: 10E0XZZ Delivery of Products of Conception, External Approach (ICD-10-PCS; 2018-08-21)
PROC: 0KQM0ZZ Repair Perineum Muscle, Open Approach (ICD-10-PCS; 2018-08-21)
DX: O70.1 Second degree perineal laceration during delivery (principal); Z37.0 Single live birth; Z3A.39 39 weeks gestation of pregnancy; O76 Abnormality in fetal heart rate and rhythm complicating labor and delivery; O63.0 Prolonged first stage (of labor)
CPT/HCPCS: 36415; 85025; 86850; 86900; 86901; A9270-GY; J3490